=== PATIENT | male | born 1945 | race Caucasian/White ===

== ENCOUNTER 2018-02-01 14:14 | Inpatient (IN) | payer OTHER ==
[~2018-02-01] VITALS: Ht 175.3 cm; Wt 71.0 kg
[2018-02-01 14:51] LABS: BASOPHILS % (AUTO) 0.5 % (0.0-5.0); EOSINOPHILS % (AUTO) 0.1 % (0.0-8.0); HEMATOCRIT 45.5 % (42-54); LYMPHOCYTES % (AUTO) 9.3 % (21.0-51.0); MEAN CORPUSCULAR HEMOGLOBIN 31.3 pg (27.0-33.0); MEAN CORPUSCULAR HGB CONC 34.8 g/dL (32.0-36.0); MONOCYTES % (AUTO) 4.5 % (3.0-13.0); NEUTROPHILS % (AUTO) 85.6 % (40.0-77.0); NUCLEATED RED BLOOD CELLS 0.1 % (0.0-0.19); PLATELET COUNT (AUTO) 232 K/uL (130-400); RED BLOOD CELL COUNT(AUTO) 5.05 MIL/uL (4.50-6.20); RED CELL DISTRIBUTION WIDTH 15.1 % (11.0-15.5); WHITE BLOOD COUNT (AUTO) 9.1 K/uL (4.8-10.8)
[2018-02-01] MEDS ORDERED: CEFTRIAXONE SODIUM 1 GM ONE (14:56)
[2018-02-01] MEDS ORDERED: SODIUM CHLORIDE 0.9% 100 ML IV ONE (14:57)
[2018-02-01 15:03] LABS: CREATININE 1.2 mg/dL (0.5-1.5); INR 1.03 (0.85-1.15); PARTIAL THROMBOPLASTIN TIME 22.7 SEC (26.3-35.5); POTASSIUM 3.8 mmol/L (3.5-5.1); PROTHROMBIN TIME 10.8 SEC (9.6-11.6)
[2018-02-01 15:07] LABS: ALBUMIN 3.1 g/dL (3.5-5.0); BILIRUBIN,TOTAL 1.7 mg/dL (0.2-1.0); TOTAL PROTEIN, SERUM 6.8 g/dL (6.0-8.3)
[2018-02-01 15:24] LABS: ABG BASE EXCESS -3.9 mmol/L (-2.0-3.0); ABG HCO3 18.4 mmol/L (21.0-28.0); ABG OXYGEN SATURATION 99.8 % (95.0-99.0); ABG PCO2 27 mmHg (35-48)
[2018-02-01] MEDS ORDERED: IPRATROPIUM/ALBUTEROL SULFATE 3 ML SOLUTION IH ONE (15:30)
[2018-02-01] MEDS ORDERED: SODIUM CHLORIDE 0.9% 500ML 500 ML IV ONE ×2 (16:00→17:59)
[2018-02-01] MEDS ORDERED: LIDOCAINE HCL 2% VISCOUS 15 ML UDCUP ONE (16:13)
[2018-02-01 16:56] LABS: APPEARANCE,URINE CLOUDY (CLEAR); BILIRUBIN,URINE SMALL (NEGATIVE); COLOR,URINE YELLOW (YELLOW); GLUCOSE, URINE (UA) NEGATIVE (NEGATIVE); KETONES,URINE NEGATIVE (NEGATIVE); LEUKOCYTE ESTERASE ,URINE TRACE (NEGATIVE); NITRATE,URINE NEGATIVE (NEGATIVE); OCCULT BLOOD,URINE LARGE (NEGATIVE); PROTEIN,URINE 30 (NEGATIVE)
[2018-02-01] MEDS ORDERED: AZITHROMYCIN 500MG+NS 250ML 250 ML IV ONE (16:57)
[2018-02-01 17:10] LABS: BACTERIA,URINE Few /HPF (None Seen); SQUAMOUS EPITHELIAL CELL,UR Rare /HPF (0-2)
[2018-02-01 17:11] LABS: MUCUS,URINE Moderate LPF (None Seen); URIC ACID CRYSTALS,URINE Moderate /LPF (None Seen)
[2018-02-01] MEDS ORDERED: SODIUM CHLORIDE 0.9% 1000ML 1,000 ML IV ONE (18:44)
[2018-02-01 19:49] VITALS: BP 99/69
[2018-02-01 20:00] VITALS: BP 100/62
[2018-02-01] MEDS ORDERED: NOREPINEPHRINE 4MG/NS 250ML 250 ML IV PRN (20:45)
[2018-02-01 21:00] VITALS: BP 93/59
[2018-02-01] MEDS: INSULIN HUMULIN R 100 UNIT/ML 3ML SQ SCH (21:00)
[2018-02-01] MEDS ORDERED: SODIUM CHLORIDE 0.9% 1000ML 1,000 ML IV SCH (21:00)
[2018-02-01] MEDS ORDERED: MEROPENEM 1GM IVPB PREMIXED 1 GM IV SCH (21:00)
[2018-02-01 21:02] LABS: ABG BASE EXCESS -7.1 mmol/L (-2.0-3.0); ABG HCO3 14.8 mmol/L (21.0-28.0); ABG OXYGEN SATURATION 98.4 % (95.0-99.0); ABG PCO2 23 mmHg (35-48)
[2018-02-01] MEDS ORDERED: VANCOMYCIN PROTOCOL PER PHARMACY IV SCH (21:30)
[2018-02-01] MEDS: MEROPENEM 1 GM VIAL IVP SCH (21:48)
[2018-02-01] MEDS: METHYLPREDNISOLONE SOD SUCC 125MG/2ML VIAL IVP SCH (21:50)
[2018-02-01] MEDS: SODIUM CHLORIDE 0.9% 1000ML 1,000 ML IV SCH (21:50)
[2018-02-01] MEDS: LEVETIRACETAM 500 MG TABLET PO SCH (21:55)
[2018-02-01 22:00] VITALS: BP 91/60
[2018-02-01] MEDS: VANCOMYCIN 1GM+NS 250ML 250 ML IV SCH (22:01)
[2018-02-01 23:00] VITALS: BP 99/50
[2018-02-01] MEDS: IPRATROPIUM/ALBUTEROL SULFATE 3 ML SOLUTION IH PRN (23:48)
[2018-02-02] VITALS (14 sets, daily range): BP systolic 86–126; BP diastolic 39–76
[2018-02-02] MEDS: METHYLPREDNISOLONE SOD SUCC 125MG/2ML VIAL IVP SCH ×4 (03:10→20:56)
[2018-02-02 03:52] LABS: BASOPHILS % (AUTO) 0.2 % (0.0-5.0); EOSINOPHILS % (AUTO) 0.1 % (0.0-8.0); HEMATOCRIT 39.9 % (42-54); LYMPHOCYTES % (AUTO) 5.2 % (21.0-51.0); MEAN CORPUSCULAR HEMOGLOBIN 31.6 pg (27.0-33.0); MEAN CORPUSCULAR HGB CONC 34.9 g/dL (32.0-36.0); MEAN CORPUSCULAR VOLUME 90.5 fL (79-99); MONOCYTES % (AUTO) 3.5 % (3.0-13.0); NUCLEATED RED BLOOD CELLS 0.1 % (0.0-0.19); PLATELET COUNT (AUTO) 175 K/uL (130-400); RED CELL DISTRIBUTION WIDTH 14.7 % (11.0-15.5); WHITE BLOOD COUNT (AUTO) 5.9 K/uL (4.8-10.8)
[2018-02-02 04:06] LABS: ALBUMIN 2.4 g/dL (3.5-5.0); BILIRUBIN,TOTAL 1.6 mg/dL (0.2-1.0); MAGNESIUM 1.7 mg/dL (1.80-2.40); PHOSPHORUS 3.7 mg/dL (2.5-4.9); POTASSIUM 4.1 mmol/L (3.5-5.1); TOTAL PROTEIN, SERUM 5.9 g/dL (6.0-8.3)
[2018-02-02] MEDS ORDERED: TIOT18CA3 IH (05:17)
[2018-02-02] MEDS ORDERED: FISH1CAP63 PO (05:17)
[2018-02-02] MEDS ORDERED: TAMS0.4C32 PO (05:17)
[2018-02-02] MEDS ORDERED: PANT40TA25 PO (05:17)
[2018-02-02] MEDS ORDERED: CALC-451 PO (05:17)
[2018-02-02] MEDS ORDERED: AZAT50TA PO (05:17)
[2018-02-02] MEDS ORDERED: CHOL200013 PO (05:17)
[2018-02-02] MEDS ORDERED: VITA1CAP85 PO (05:17)
[2018-02-02] MEDS ORDERED: ASPI-555 PO (05:17)
[2018-02-02] MEDS: MEROPENEM 1 GM VIAL IVP SCH ×3 (05:19→20:54)
[2018-02-02 05:39] LABS: ABG BASE EXCESS -1.9 mmol/L (-2.0-3.0); ABG PCO2 27 mmHg (35-48)
[2018-02-02] MEDS: INSULIN HUMULIN R 100 UNIT/ML 3ML SQ SCH ×4 (06:14→20:46)
[2018-02-02] MEDS: SODIUM CHLORIDE 0.9% 1000ML 1,000 ML IV SCH ×2 (06:15→17:07)
[2018-02-02] MEDS: IPRATROPIUM/ALBUTEROL SULFATE 3 ML SOLUTION IH PRN (06:16)
[2018-02-02] MEDS: LEVETIRACETAM 500 MG TABLET PO SCH ×2 (08:18→20:56)
[2018-02-02] MEDS: LEVOFLOXACIN 750 MG/D5W 150 ML 150 ML IV SCH (08:18)
[2018-02-02] MEDS: PANTOPRAZOLE SODIUM 40 MG TABLET.DR PO SCH (08:18)
[2018-02-02] MEDS: VANCOMYCIN 1GM+NS 250ML 250 ML IV SCH ×2 (08:18→20:50)
[2018-02-02] MEDS: ENOXAPARIN SODIUM 40 MG/0.4 ML SYRINGE SQ SCH (08:35)
[2018-02-02] MEDS: IPRATROPIUM/ALBUTEROL SULFATE 3 ML SOLUTION IH SCH ×2 (11:37→19:19)
[2018-02-02] MEDS: ACETAMINOPHEN 325 MG TAB PO PRN (18:34)
[2018-02-03] VITALS (7 sets, daily range): BP systolic 103–133; BP diastolic 50–69
[2018-02-03] MEDS: IPRATROPIUM/ALBUTEROL SULFATE 3 ML SOLUTION IH SCH ×5 (00:40→23:28)
[2018-02-03] MEDS: METHYLPREDNISOLONE SOD SUCC 125MG/2ML VIAL IVP SCH ×2 (03:24→08:54)
[2018-02-03] MEDS: SODIUM CHLORIDE 0.9% 1000ML 1,000 ML IV SCH ×2 (05:32→12:16)
[2018-02-03] MEDS: MEROPENEM 1 GM VIAL IVP SCH ×3 (05:46→20:50)
[2018-02-03] MEDS: INSULIN HUMULIN R 100 UNIT/ML 3ML SQ SCH ×4 (07:30→21:00)
[2018-02-03] MEDS: VANCOMYCIN 1GM+NS 250ML 250 ML IV SCH (09:10)
[2018-02-03] MEDS: LEVOFLOXACIN 750 MG/D5W 150 ML 150 ML IV SCH (10:35)
[2018-02-03] MEDS: LEVETIRACETAM 500 MG TABLET PO SCH ×2 (10:35→20:50)
[2018-02-03] MEDS: ASPIRIN 325 MG TABLET PO SCH (10:35)
[2018-02-03] MEDS: PANTOPRAZOLE SODIUM 40 MG TABLET.DR PO SCH (10:35)
[2018-02-03] MEDS: DEXAMETHASONE SOD PHOSPHATE 4 MG/ML 1ML VIAL IVP SCH ×3 (10:35→22:20)
[2018-02-03] MEDS: ENOXAPARIN SODIUM 40 MG/0.4 ML SYRINGE SQ SCH (10:36)
[2018-02-03] MEDS ORDERED: COMPOUND IV REFRIGERATED 1 EACH IVSOLN MISC PRN (13:45)
[2018-02-03] MEDS: VANCOMYCIN 1.25 GM in SODIUM CHLORIDE 0.9% 250 ML IV SCH (17:20)
[2018-02-03] MEDS ORDERED: MANNITOL 20% IV ONE ×2 (19:30→20:30)
[2018-02-03] MEDS: ACETAMINOPHEN 325 MG TAB PO PRN (20:04)
[2018-02-04 03:28] VITALS: BP 134/71
[2018-02-04] MEDS: DEXAMETHASONE SOD PHOSPHATE 4 MG/ML 1ML VIAL IVP SCH ×4 (03:39→21:21)
[2018-02-04] MEDS: SODIUM CHLORIDE 0.9% 1000ML 1,000 ML IV SCH ×2 (03:39→16:34)
[2018-02-04 03:56] LABS: HEMATOCRIT 31.3 % (42-54); MEAN CORPUSCULAR HEMOGLOBIN 31.3 pg (27.0-33.0); MEAN CORPUSCULAR VOLUME 89.5 fL (79-99); NUCLEATED RED BLOOD CELLS 0.2 % (0.0-0.19); PLATELET COUNT (AUTO) 164 K/uL (130-400); WHITE BLOOD COUNT (AUTO) 6.8 K/uL (4.8-10.8)
[2018-02-04 04:08] LABS: ALBUMIN 1.8 g/dL (3.5-5.0); BILIRUBIN,TOTAL 0.5 mg/dL (0.2-1.0); CREATININE 0.8 mg/dL (0.5-1.5); POTASSIUM 3.1 mmol/L (3.5-5.1); TOTAL PROTEIN, SERUM 5.4 g/dL (6.0-8.3)
[2018-02-04] MEDS: VANCOMYCIN 1.25 GM in SODIUM CHLORIDE 0.9% 250 ML IV SCH ×2 (05:27→18:12)
[2018-02-04] MEDS: MEROPENEM 1 GM VIAL IVP SCH ×3 (05:27→21:20)
[2018-02-04] MEDS: IPRATROPIUM/ALBUTEROL SULFATE 3 ML SOLUTION IH SCH ×4 (06:54→23:21)
[2018-02-04] MEDS: INSULIN HUMULIN R 100 UNIT/ML 3ML SQ SCH ×4 (06:59→20:58)
[2018-02-04 07:48] VITALS: BP 115/61
[2018-02-04 08:00] VITALS: BP 116/52
[2018-02-04] MEDS: LEVETIRACETAM 500 MG TABLET PO SCH ×2 (08:26→21:20)
[2018-02-04] MEDS: PANTOPRAZOLE SODIUM 40 MG TABLET.DR PO SCH (08:26)
[2018-02-04] MEDS: ENOXAPARIN SODIUM 40 MG/0.4 ML SYRINGE SQ SCH (08:26)
[2018-02-04] MEDS: ASPIRIN 325 MG TABLET PO SCH (08:26)
[2018-02-04] MEDS: LEVOFLOXACIN 750 MG/D5W 150 ML 150 ML IV SCH (09:53)
[2018-02-04] MEDS ORDERED: GADOBENATE DIMEGLUMINE 10 ML IV ONE (10:19)
[2018-02-04 11:26] VITALS: BP 109/89
[2018-02-04] MEDS ORDERED: POTASSIUM CHLORIDE 10 MEQ in SODIUM CHLORIDE 0.9% 50 ML IV SCH (12:45)
[2018-02-04] MEDS: ACETAMINOPHEN 325 MG TAB PO PRN (14:44)
[2018-02-04 16:00] VITALS: BP 118/66
[2018-02-04] MEDS: MANNITOL 25% 50ML VIAL IV SCH (18:17)
[2018-02-04 20:00] VITALS: BP 97/50
[2018-02-04] MEDS: ATORVASTATIN CALCIUM 40 MG TABLET PO SCH (21:21)
[2018-02-05] VITALS (19 sets, daily range): BP systolic 98–132; BP diastolic 42–71
[2018-02-05] MEDS: MANNITOL 25% 50ML VIAL IV SCH ×4 (01:05→23:58)
[2018-02-05 03:34] LABS: HEMATOCRIT 30.6 % (42-54); MEAN CORPUSCULAR HEMOGLOBIN 32.6 pg (27.0-33.0); MEAN CORPUSCULAR HGB CONC 36.5 g/dL (32.0-36.0); MEAN CORPUSCULAR VOLUME 89.2 fL (79-99); NUCLEATED RED BLOOD CELLS 0.3 % (0.0-0.19); PLATELET COUNT (AUTO) 159 K/uL (130-400); RED BLOOD CELL COUNT(AUTO) 3.43 MIL/uL (4.50-6.20); RED CELL DISTRIBUTION WIDTH 14.7 % (11.0-15.5); WHITE BLOOD COUNT (AUTO) 5.9 K/uL (4.8-10.8)
[2018-02-05] MEDS: DEXAMETHASONE SOD PHOSPHATE 4 MG/ML 1ML VIAL IVP SCH ×4 (03:42→21:41)
[2018-02-05 03:44] LABS: INR 1.02 (0.85-1.15); PARTIAL THROMBOPLASTIN TIME 24.4 SEC (26.3-35.5); PROTHROMBIN TIME 10.7 SEC (9.6-11.6)
[2018-02-05] MEDS: SODIUM CHLORIDE 0.9% 1000ML 1,000 ML IV SCH ×2 (03:46→21:39)
[2018-02-05 03:52] LABS: ALBUMIN 1.8 g/dL (3.5-5.0); BILIRUBIN,TOTAL 0.4 mg/dL (0.2-1.0); CREATININE 0.8 mg/dL (0.5-1.5); MAGNESIUM 1.9 mg/dL (1.80-2.40); PHOSPHORUS 2.4 mg/dL (2.5-4.9); POTASSIUM 3.5 mmol/L (3.5-5.1); TOTAL PROTEIN, SERUM 5.2 g/dL (6.0-8.3)
[2018-02-05] MEDS: MEROPENEM 1 GM VIAL IVP SCH ×3 (04:00→21:40)
[2018-02-05] MEDS: VANCOMYCIN 1.25 GM in SODIUM CHLORIDE 0.9% 250 ML IV SCH ×2 (04:45→18:23)
[2018-02-05] MEDS: INSULIN HUMULIN R 100 UNIT/ML 3ML SQ SCH ×4 (06:23→21:00)
[2018-02-05] MEDS: IPRATROPIUM/ALBUTEROL SULFATE 3 ML SOLUTION IH SCH ×4 (07:02→23:11)
[2018-02-05] MEDS: LEVOFLOXACIN 750 MG/D5W 150 ML 150 ML IV SCH (09:58)
[2018-02-05] MEDS: ENOXAPARIN SODIUM 40 MG/0.4 ML SYRINGE SQ SCH (10:00)
[2018-02-05] MEDS: ACETAMINOPHEN 325 MG TAB PO PRN ×2 (10:00→22:03)
[2018-02-05] MEDS: ASPIRIN 325 MG TABLET PO SCH (10:01)
[2018-02-05] MEDS: PANTOPRAZOLE SODIUM 40 MG TABLET.DR PO SCH (10:01)
[2018-02-05] MEDS: LEVETIRACETAM 500 MG TABLET PO SCH ×2 (10:02→21:40)
[2018-02-05] MEDS ORDERED: DEXAMETHASONE SOD PHOSPHATE 4 MG/ML 1ML VIAL IVP ONE (20:42)
[2018-02-05] MEDS: ATORVASTATIN CALCIUM 40 MG TABLET PO SCH (21:40)
[2018-02-06] VITALS (7 sets, daily range): BP systolic 106–141; BP diastolic 63–69
[2018-02-06] MEDS: DEXAMETHASONE SOD PHOSPHATE 4 MG/ML 1ML VIAL IVP SCH ×4 (03:30→20:07)
[2018-02-06] MEDS: MEROPENEM 1 GM VIAL IVP SCH ×3 (04:57→20:07)
[2018-02-06] MEDS: VANCOMYCIN 1.25 GM in SODIUM CHLORIDE 0.9% 250 ML IV SCH ×2 (06:00→22:16)
[2018-02-06] MEDS: IPRATROPIUM/ALBUTEROL SULFATE 3 ML SOLUTION IH SCH ×4 (06:14→23:50)
[2018-02-06] MEDS: INSULIN HUMULIN R 100 UNIT/ML 3ML SQ SCH ×4 (06:23→20:18)
[2018-02-06] MEDS: LEVETIRACETAM 500 MG TABLET PO SCH ×2 (08:12→20:07)
[2018-02-06] MEDS: ASPIRIN 325 MG TABLET PO SCH (08:13)
[2018-02-06] MEDS: ACETAMINOPHEN 325 MG TAB PO PRN (08:14)
[2018-02-06] MEDS: PANTOPRAZOLE SODIUM 40 MG TABLET.DR PO SCH (08:14)
[2018-02-06] MEDS: ENOXAPARIN SODIUM 40 MG/0.4 ML SYRINGE SQ SCH (08:16)
[2018-02-06] MEDS: SODIUM CHLORIDE 0.9% 1000ML 1,000 ML IV SCH (08:16)
[2018-02-06] MEDS: LEVOFLOXACIN 750 MG/D5W 150 ML 150 ML IV SCH (08:17)
[2018-02-06] MEDS: MANNITOL 25% 50ML VIAL IV SCH (08:17)
[2018-02-06 11:11] LABS: BASOPHILS % (AUTO) 0.1 % (0.0-5.0); HEMATOCRIT 34.2 % (42-54); LYMPHOCYTES % (AUTO) 5.6 % (21.0-51.0); MEAN CORPUSCULAR HEMOGLOBIN 31.4 pg (27.0-33.0); MEAN CORPUSCULAR HGB CONC 35.2 g/dL (32.0-36.0); MEAN CORPUSCULAR VOLUME 89.1 fL (79-99); MONOCYTES % (AUTO) 5.4 % (3.0-13.0); NEUTROPHILS % (AUTO) 88.9 % (40.0-77.0); NUCLEATED RED BLOOD CELLS 0.2 % (0.0-0.19); PLATELET COUNT (AUTO) 167 K/uL (130-400); RED BLOOD CELL COUNT(AUTO) 3.84 MIL/uL (4.50-6.20); RED CELL DISTRIBUTION WIDTH 14.8 % (11.0-15.5); WHITE BLOOD COUNT (AUTO) 6.8 K/uL (4.8-10.8)
[2018-02-06 11:27] LABS: CREATININE 0.8 mg/dL (0.5-1.5); PHOSPHORUS 2.1 mg/dL (2.5-4.9); POTASSIUM 3.5 mmol/L (3.5-5.1)
[2018-02-06] MEDS: MORPHINE SULFATE 2 MG/ML 1ML SYG IVP PRN ×2 (12:36→20:35)
[2018-02-06] MEDS: BENZONATATE 100 MG CAPSULE PO PRN (12:36)
[2018-02-06] MEDS: MORPHINE SULFATE 4 MG/1ML SYG ONE ×2 (16:36→16:55)
[2018-02-06] MEDS: ATORVASTATIN CALCIUM 40 MG TABLET PO SCH (20:07)
[2018-02-07] VITALS: BP 114/60
[2018-02-07 04:00] VITALS: BP 126/66
[2018-02-07] MEDS: MORPHINE SULFATE 2 MG/ML 1ML SYG IVP PRN ×4 (04:10→21:19)
[2018-02-07] MEDS: SODIUM CHLORIDE 0.9% 1000ML 1,000 ML IV SCH ×2 (04:12→11:51)
[2018-02-07] MEDS: MEROPENEM 1 GM VIAL IVP SCH ×3 (04:17→21:05)
[2018-02-07] MEDS: DEXAMETHASONE SOD PHOSPHATE 4 MG/ML 1ML VIAL IVP SCH ×4 (04:17→21:39)
[2018-02-07] MEDS: INSULIN HUMULIN R 100 UNIT/ML 3ML SQ SCH ×4 (06:01→21:00)
[2018-02-07] MEDS: VANCOMYCIN 1.25 GM in SODIUM CHLORIDE 0.9% 250 ML IV SCH ×2 (06:02→18:07)
[2018-02-07] MEDS: IPRATROPIUM/ALBUTEROL SULFATE 3 ML SOLUTION IH SCH ×4 (06:43→23:37)
[2018-02-07 07:00] VITALS: BP 108/71
[2018-02-07] MEDS: ASPIRIN 325 MG TABLET PO SCH (08:13)
[2018-02-07] MEDS: PANTOPRAZOLE SODIUM 40 MG TABLET.DR PO SCH (08:13)
[2018-02-07] MEDS: LEVETIRACETAM 500 MG TABLET PO SCH ×2 (08:13→21:06)
[2018-02-07] MEDS: ENOXAPARIN SODIUM 40 MG/0.4 ML SYRINGE SQ SCH (08:14)
[2018-02-07] MEDS: LEVOFLOXACIN 750 MG/D5W 150 ML 150 ML IV SCH (08:32)
[2018-02-07] MEDS: BENZONATATE 100 MG CAPSULE PO PRN (10:32)
[2018-02-07 12:00] VITALS: BP 120/67
[2018-02-07 16:00] VITALS: BP 117/67
[2018-02-07 20:00] VITALS: BP 116/68
[2018-02-07] MEDS: ATORVASTATIN CALCIUM 40 MG TABLET PO SCH (21:06)
[2018-02-07] MEDS: POLYETHYLENE GLYCOL 3350 17 GM POWD.PACK PO PRN (23:36)
[2018-02-08] VITALS (7 sets, daily range): BP systolic 108–134; BP diastolic 57–73
[2018-02-08] MEDS: SODIUM CHLORIDE 0.9% 1000ML 1,000 ML IV SCH (01:02)
[2018-02-08] MEDS: MORPHINE SULFATE 2 MG/ML 1ML SYG IVP PRN ×2 (01:19→14:42)
[2018-02-08] MEDS: DEXAMETHASONE SOD PHOSPHATE 4 MG/ML 1ML VIAL IVP SCH ×3 (03:53→21:11)
[2018-02-08] MEDS: MEROPENEM 1 GM VIAL IVP SCH (04:31)
[2018-02-08] MEDS: VANCOMYCIN 1.25 GM in SODIUM CHLORIDE 0.9% 250 ML IV SCH (05:29)
[2018-02-08] MEDS: INSULIN HUMULIN R 100 UNIT/ML 3ML SQ SCH ×4 (06:10→20:16)
[2018-02-08] MEDS: IPRATROPIUM/ALBUTEROL SULFATE 3 ML SOLUTION IH SCH ×4 (06:35→23:25)
[2018-02-08] MEDS: LEVETIRACETAM 500 MG TABLET PO SCH ×2 (09:22→21:13)
[2018-02-08] MEDS: LEVOFLOXACIN 750 MG/D5W 150 ML 150 ML IV SCH (09:22)
[2018-02-08] MEDS: ASPIRIN 325 MG TABLET PO SCH (09:23)
[2018-02-08] MEDS: PANTOPRAZOLE SODIUM 40 MG TABLET.DR PO SCH (09:23)
[2018-02-08] MEDS: ENOXAPARIN SODIUM 40 MG/0.4 ML SYRINGE SQ SCH (09:23)
[2018-02-08] MEDS ORDERED: MORPHINE SULFATE 4 MG/1ML SYG ONE (21:10)
[2018-02-08] MEDS: ATORVASTATIN CALCIUM 40 MG TABLET PO SCH (21:13)
[2018-02-09 04:00] VITALS: BP 114/59
[2018-02-09] MEDS: IPRATROPIUM/ALBUTEROL SULFATE 3 ML SOLUTION IH SCH ×3 (06:29→11:05)
[2018-02-09] MEDS: INSULIN HUMULIN R 100 UNIT/ML 3ML SQ SCH ×2 (06:35→11:30)
[2018-02-09 08:00] VITALS: BP 109/57
[2018-02-09] MEDS ORDERED: MORPHINE SULFATE 4 MG/1ML SYG ONE (09:14)
[2018-02-09] MEDS: LEVOFLOXACIN 750 MG/D5W 150 ML 150 ML IV SCH (09:40)
[2018-02-09] MEDS: DEXAMETHASONE SOD PHOSPHATE 4 MG/ML 1ML VIAL IVP SCH (09:41)
[2018-02-09] MEDS: ASPIRIN 325 MG TABLET PO SCH (09:41)
[2018-02-09] MEDS: PANTOPRAZOLE SODIUM 40 MG TABLET.DR PO SCH (09:41)
[2018-02-09] MEDS: ENOXAPARIN SODIUM 40 MG/0.4 ML SYRINGE SQ SCH (09:41)
[2018-02-09] MEDS: LEVETIRACETAM 500 MG TABLET PO SCH (09:42)
[2018-02-09] MEDS: MORPHINE SULFATE 2 MG/ML 1ML SYG IVP PRN (09:43)
[2018-02-09 11:38] VITALS: BP 90/55
[2018-02-09] MEDS: POLYETHYLENE GLYCOL 3350 17 GM POWD.PACK PO PRN (12:15)
[2018-02-19] MEDS ORDERED: TRAZ-144 PO (09:05)
== END 2018-02-09 16:00 | DRG 871 ==
LOC: EDH 14:14 → EDHIP 18:35 → 2BH 19:47 → 3BH 02-06 12:27
PROVIDERS: ADMIT Internal Medicine Medical Oncology; ATTEND Internal Medicine Medical Oncology
PROC: 5A09357 Assistance with Respiratory Ventilation, Less than 24 Consecutive Hours, Continuous Positive Airway Pressure (ICD-10-PCS; principal; 2018-02-01)
PROC: 5A09357 Assistance with Respiratory Ventilation, Less than 24 Consecutive Hours, Continuous Positive Airway Pressure (ICD-10-PCS; 2018-02-02)
DX: A41.9 Sepsis, unspecified organism (principal); J18.9 Pneumonia, unspecified organism; G93.6 Cerebral edema; I63.521 Cerebral infarction due to unspecified occlusion or stenosis of right anterior cerebral artery; J96.01 Acute respiratory failure with hypoxia; G93.40 Encephalopathy, unspecified; E46 Unspecified protein-calorie malnutrition; C71.9 Malignant neoplasm of brain, unspecified; R13.10 Dysphagia, unspecified; G81.94 Hemiplegia, unspecified affecting left nondominant side; J44.0 Chronic obstructive pulmonary disease with (acute) lower respiratory infection; J44.1 Chronic obstructive pulmonary disease with (acute) exacerbation; Z66 Do not resuscitate; E83.39 Other disorders of phosphorus metabolism; E87.6 Hypokalemia; K74.60 Unspecified cirrhosis of liver; M19.90 Unspecified osteoarthritis, unspecified site; R56.9 Unspecified convulsions; Z28.21 Immunization not carried out because of patient refusal; Z68.23 Body mass index [BMI] 23.0-23.9, adult; Z79.52 Long term (current) use of systemic steroids; Z80.9 Family history of malignant neoplasm, unspecified; Z82.49 Family history of ischemic heart disease and other diseases of the circulatory system; Z83.3 Family history of diabetes mellitus; Z87.891 Personal history of nicotine dependence; Z90.49 Acquired absence of other specified parts of digestive tract; Z92.21 Personal history of antineoplastic chemotherapy
CPT/HCPCS: 36415; 36600; 70450; 70553; 71045; 80048; 80053; 80202; 81001; 82803; 82948; 83605; 83735; 83880; 83930; 84100; 84484; 85025; 85027; 85610; 85730; 87040; 87088; 87186; 87804; 92610; 93005; 93306; 94640; 94660; 94664; 97039; 99291; A4218; A9577; J0456; J0696; J1100; J1650; J1815; J1956; J2150; J2185; J2270; J2930; J3370; J3490; J7030; J7040

== ENCOUNTER 2018-02-18 20:18 | Inpatient (IN) | payer OTHER ==
[~2018-02-18] VITALS: Ht 175.3 cm; Wt 61.6 kg
[~2018-02-18 20:18] MED LIST: ASPI-555 PO; AZAT50TA PO; CALC-451 PO; CHOL200013 PO; FISH1CAP63 PO; PANT40TA25 PO; TAMS0.4C32 PO; TIOT18CA3 IH; VITA1CAP85 PO
[2018-02-18] MEDS ORDERED: BENZONATATE 100 MG CAPSULE PO ONE (20:49)
[2018-02-18 20:57] LABS: BASOPHILS % (AUTO) 0.9 % (0.0-5.0); EOSINOPHILS % (AUTO) 0.7 % (0.0-8.0); HEMATOCRIT 33.5 % (42-54); LYMPHOCYTES % (AUTO) 13.3 % (21.0-51.0); MEAN CORPUSCULAR HEMOGLOBIN 31.6 pg (27.0-33.0); MEAN CORPUSCULAR HGB CONC 35.6 g/dL (32.0-36.0); MEAN CORPUSCULAR VOLUME 88.7 fL (79-99); MONOCYTES % (AUTO) 3.4 % (3.0-13.0); NEUTROPHILS % (AUTO) 81.7 % (40.0-77.0); NUCLEATED RED BLOOD CELLS 0.8 % (0.0-0.19); PLATELET COUNT (AUTO) 270 K/uL (130-400); RED BLOOD CELL COUNT(AUTO) 3.78 MIL/uL (4.50-6.20); RED CELL DISTRIBUTION WIDTH 15.5 % (11.0-15.5); WHITE BLOOD COUNT (AUTO) 12.4 K/uL (4.8-10.8)
[2018-02-18 21:06] LABS: INR 1.09 (0.85-1.15); PARTIAL THROMBOPLASTIN TIME 21.7 SEC (26.3-35.5); PROTHROMBIN TIME 11.4 SEC (9.6-11.6)
[2018-02-18 21:07] LABS: CREATININE 0.7 mg/dL (0.5-1.5); POTASSIUM 3.5 mmol/L (3.5-5.1)
[2018-02-18 21:21] LABS: ALBUMIN 2.3 g/dL (3.5-5.0); BILIRUBIN,TOTAL 0.7 mg/dL (0.2-1.0); CREATINE KINASE MB 1.4 ng/mL (0.5-3.6); TOTAL PROTEIN, SERUM 6.7 g/dL (6.0-8.3)
[2018-02-18] MEDS ORDERED: SODIUM CHLORIDE 0.9% 500ML 500 ML IV ONE (23:00)
[2018-02-18] MEDS ORDERED: LEVOFLOXACIN 500 MG/D5W 100 ML 100 ML ONE (23:00)
[2018-02-18] MEDS ORDERED: ASPIRIN 325 MG TABLET ONE (23:00)
[2018-02-18] MEDS ORDERED: IPRATROPIUM/ALBUTEROL SULFATE 3 ML SOLUTION IH ONE (23:02)
[2018-02-19] VITALS (21 sets, daily range): BP systolic 82–166; BP diastolic 45–66
[2018-02-19] MEDS ORDERED: POTASSIUM CHLORIDE 20MEQ/100ML 100 ML IV PRN (01:30)
[2018-02-19] MEDS ORDERED: HYDRALAZINE HCL 20 MG/ML VIAL IV PRN (01:30)
[2018-02-19] MEDS ORDERED: POTASSIUM CHLORIDE 20 MEQ ERTAB PO PRN (01:30)
[2018-02-19] MEDS: LEVOFLOXACIN 500 MG/D5W 100 ML 100 ML IV SCH (01:30)
[2018-02-19] MEDS ORDERED: LIDOCAINE HCL-MPF 1% 2ML VIAL IVP PRN (01:30)
[2018-02-19] MEDS ORDERED: POTASSIUM CHLORIDE 10% ELIXIR 20 MEQ/15 ML UDCUP PO PRN (01:30)
[2018-02-19] MEDS: IPRATROPIUM/ALBUTEROL SULFATE 3 ML SOLUTION IH SCH ×6 (03:11→22:07)
[2018-02-19] MEDS ORDERED: CLONIDINE HCL 0.1 MG TABLET PO PRN (05:30)
[2018-02-19] MEDS ORDERED: ZOLPIDEM TARTRATE 5 MG TAB PO PRN (05:30)
[2018-02-19] MEDS ORDERED: DEXTROSE 50%-WATER 50 ML DISP.SYRIN IV PRN (05:30)
[2018-02-19] MEDS ORDERED: MAG HYDROX/AL HYDROX/SIMETH ES 30 ML SUSP UDCUP PO PRN (05:30)
[2018-02-19] MEDS ORDERED: SODIUM CHLORIDE 0.9% 1000ML 1,000 ML IV SCH (05:30)
[2018-02-19] MEDS ORDERED: NITROGLYCERIN 0.4 MG SL TAB SL PRN (05:30)
[2018-02-19] MEDS ORDERED: LACTULOSE 20 GM/30 ML UDCUP PO PRN (05:30)
[2018-02-19] MEDS ORDERED: GUAIFENESIN-DM 200/20 MG 10 ML PO PRN (05:30)
[2018-02-19] MEDS ORDERED: GLUCAGON 1MG KIT 1 MG ML IM PRN (05:30)
[2018-02-19] MEDS ORDERED: ACETAMINOPHEN 325 MG TAB PO PRN ×2 (05:30)
[2018-02-19] MEDS ORDERED: ONDANSETRON HCL 4 MG/2 ML VIAL IVP PRN (05:30)
[2018-02-19] MEDS ORDERED: ONDANSETRON HCL MDV 20ML 2 MG/ML VIAL IVP PRN (05:45)
[2018-02-19 06:00] LABS: BASOPHILS % (AUTO) 0.6 % (0.0-5.0); EOSINOPHILS % (AUTO) 0.8 % (0.0-8.0); HEMATOCRIT 29.5 % (42-54); LYMPHOCYTES % (AUTO) 14.7 % (21.0-51.0); MEAN CORPUSCULAR HEMOGLOBIN 30.9 pg (27.0-33.0); MEAN CORPUSCULAR VOLUME 88.3 fL (79-99); MONOCYTES % (AUTO) 2.3 % (3.0-13.0); NEUTROPHILS % (AUTO) 81.6 % (40.0-77.0); NUCLEATED RED BLOOD CELLS 0.3 % (0.0-0.19); PLATELET COUNT (AUTO) 205 K/uL (130-400); RED BLOOD CELL COUNT(AUTO) 3.34 MIL/uL (4.50-6.20); RED CELL DISTRIBUTION WIDTH 15.5 % (11.0-15.5); WHITE BLOOD COUNT (AUTO) 7.3 K/uL (4.8-10.8)
[2018-02-19] MEDS ORDERED: MEPERIDINE-PF 50 MG/ML SYG IVP PRN (06:00)
[2018-02-19 06:16] LABS: CREATININE 0.6 mg/dL (0.5-1.5); POTASSIUM 3.3 mmol/L (3.5-5.1)
[2018-02-19] MEDS: INSULIN R PO SS1 SQ SCH ×3 (06:35→23:30)
[2018-02-19] MEDS ORDERED: PANTOPRAZOLE 40 MG/VIAL IVP SCH (09:00)
[2018-02-19] MEDS ORDERED: ASCO500T9 PO (09:05)
[2018-02-19] MEDS ORDERED: ZINC220T PO (09:05)
[2018-02-19] MEDS ORDERED: LACHLOT TP (09:05)
[2018-02-19] MEDS ORDERED: TAMS-1 PO (09:05)
[2018-02-19] MEDS ORDERED: POLY17PO4 PO (09:05)
[2018-02-19] MEDS ORDERED: DEXA2 PO (09:05)
[2018-02-19] MEDS ORDERED: MEGACE PO (09:05)
[2018-02-19] MEDS ORDERED: TRAZ-185 PO (09:05)
[2018-02-19] MEDS ORDERED: ATOR40TA69 PO (09:05)
[2018-02-19] MEDS ORDERED: PANT40TA25 PO (09:05)
[2018-02-19] MEDS ORDERED: MOM30 PO (09:05)
[2018-02-19] MEDS ORDERED: LEVE500T8 PO (09:05)
[2018-02-19] MEDS ORDERED: TIOT18CA3 IH (09:05)
[2018-02-19] MEDS ORDERED: LIDOP TD (09:05)
[2018-02-19] MEDS ORDERED: BENZ-39 PO (09:05)
[2018-02-19] MEDS ORDERED: CLOT15C TP (09:05)
[2018-02-19] MEDS: METHYLPREDNISOLONE SOD SUCC 40MG/ML 1ML IVP SCH ×2 (10:13→22:55)
[2018-02-19] MEDS: FAMOTIDINE/PF 20 MG/2 ML VIAL IV SCH ×2 (10:13→22:55)
[2018-02-19] MEDS ORDERED: MAGNESIUM HYDROXIDE 30 ML/UDCUP PO SCH (10:15)
[2018-02-19] MEDS ORDERED: BENZONATATE 100 MG CAPSULE PO PRN (10:15)
[2018-02-19] MEDS ORDERED: POLYETHYLENE GLYCOL 3350 17 GM POWD.PACK PO PRN (10:15)
[2018-02-19] MEDS: ZINC SULFATE 220 CAPSULE PO SCH (10:25)
[2018-02-19] MEDS ORDERED: CEFAZOLIN SODIUM 1 GM VIAL ONE (12:41)
[2018-02-19] MEDS: LEVETIRACETAM 500 MG TABLET PO SCH (22:55)
[2018-02-19] MEDS: ASCORBIC ACID 500 MG TAB PO SCH (22:55)
[2018-02-19] MEDS: DEXAMETHASONE 4 MG TAB PO SCH (22:55)
[2018-02-19] MEDS: ATORVASTATIN CALCIUM 40 MG TABLET PO SCH (22:55)
[2018-02-19] MEDS: TRAZODONE HCL 50 MG TAB PO SCH (22:55)
[2018-02-20] VITALS: BP 137/69
[2018-02-20] MEDS: LEVOFLOXACIN 500 MG/D5W 100 ML 100 ML IV SCH (00:59)
[2018-02-20] MEDS: IPRATROPIUM/ALBUTEROL SULFATE 3 ML SOLUTION IH SCH ×6 (02:19→22:25)
[2018-02-20 04:00] VITALS: BP 125/66
[2018-02-20 06:04] LABS: BASOPHILS % (AUTO) 0.1 % (0.0-5.0); LYMPHOCYTES % (AUTO) 7.1 % (21.0-51.0); MEAN CORPUSCULAR HEMOGLOBIN 32.4 pg (27.0-33.0); MEAN CORPUSCULAR HGB CONC 36.7 g/dL (32.0-36.0); MEAN CORPUSCULAR VOLUME 88.4 fL (79-99); MONOCYTES % (AUTO) 2.5 % (3.0-13.0); NEUTROPHILS % (AUTO) 90.3 % (40.0-77.0); NUCLEATED RED BLOOD CELLS 0.1 % (0.0-0.19); PLATELET COUNT (AUTO) 215 K/uL (130-400); RED CELL DISTRIBUTION WIDTH 15.2 % (11.0-15.5); WHITE BLOOD COUNT (AUTO) 8.6 K/uL (4.8-10.8)
[2018-02-20 06:13] LABS: CREATININE 0.5 mg/dL (0.5-1.5)
[2018-02-20] MEDS: INSULIN R PO SS1 SQ SCH ×2 (06:19→21:00)
[2018-02-20 08:00] VITALS: BP 119/70
[2018-02-20] MEDS: AMMONIUM LACTATE TP SCH (09:00)
[2018-02-20] MEDS ORDERED: SUB TO IPRATROPIUM 0.5MG/2.5ML PER P&T IH SCH (09:00)
[2018-02-20] MEDS: APPL TP SCH (09:00)
[2018-02-20] MEDS: LEVETIRACETAM 500 MG TABLET PO SCH ×2 (10:27→21:54)
[2018-02-20] MEDS: FAMOTIDINE/PF 20 MG/2 ML VIAL IV SCH ×2 (10:27→21:53)
[2018-02-20] MEDS: MEGESTROL 400 MG/10 ML UDCUP PO SCH (10:27)
[2018-02-20] MEDS: ASCORBIC ACID 500 MG TAB PO SCH ×2 (10:27→21:54)
[2018-02-20] MEDS: TAMSULOSIN HCL 0.4 MG CAP.ER.24H PO SCH (10:27)
[2018-02-20] MEDS: ZINC SULFATE 220 CAPSULE PO SCH (10:42)
[2018-02-20] MEDS: DEXAMETHASONE 4 MG TAB PO SCH ×2 (10:43→23:18)
[2018-02-20] MEDS: METHYLPREDNISOLONE SOD SUCC 40MG/ML 1ML IVP SCH ×2 (10:44→21:53)
[2018-02-20] MEDS: ACETAMINOPHEN 325 MG TAB PO PRN ×2 (10:53→21:55)
[2018-02-20 11:55] VITALS: BP 126/71
[2018-02-20] MEDS: IPRATROPIUM 0.5 MG/2.5 ML INH IH SCH ×2 (12:00→18:00)
[2018-02-20 16:00] VITALS: BP 97/52
[2018-02-20 19:00] VITALS: BP 111/62
[2018-02-20] MEDS: ATORVASTATIN CALCIUM 40 MG TABLET PO SCH (21:54)
[2018-02-20] MEDS: TRAZODONE HCL 50 MG TAB PO SCH (21:54)
[2018-02-21] VITALS: BP 99/56
[2018-02-21] MEDS: IPRATROPIUM/ALBUTEROL SULFATE 3 ML SOLUTION IH SCH ×6 (01:33→22:17)
[2018-02-21 04:00] VITALS: BP 106/59
[2018-02-21] MEDS: LEVOFLOXACIN 500 MG/D5W 100 ML 100 ML IV SCH (04:13)
[2018-02-21 05:54] LABS: BASOPHILS % (AUTO) 0.1 % (0.0-5.0); HEMATOCRIT 28.3 % (42-54); LYMPHOCYTES % (AUTO) 5.9 % (21.0-51.0); MEAN CORPUSCULAR HEMOGLOBIN 31.2 pg (27.0-33.0); MEAN CORPUSCULAR VOLUME 86.7 fL (79-99); MONOCYTES % (AUTO) 2.4 % (3.0-13.0); NEUTROPHILS % (AUTO) 91.6 % (40.0-77.0); NUCLEATED RED BLOOD CELLS 0.3 % (0.0-0.19); PLATELET COUNT (AUTO) 268 K/uL (130-400); RED BLOOD CELL COUNT(AUTO) 3.26 MIL/uL (4.50-6.20); RED CELL DISTRIBUTION WIDTH 15.1 % (11.0-15.5)
[2018-02-21] MEDS: IPRATROPIUM 0.5 MG/2.5 ML INH IH SCH ×3 (06:00→18:00)
[2018-02-21 06:04] LABS: CREATININE 0.5 mg/dL (0.5-1.5); POTASSIUM 3.6 mmol/L (3.5-5.1)
[2018-02-21] MEDS: INSULIN R PO SS1 SQ SCH ×4 (06:33→21:00)
[2018-02-21 08:00] VITALS: BP 110/65
[2018-02-21] MEDS: METHYLPREDNISOLONE SOD SUCC 40MG/ML 1ML IVP SCH ×2 (09:00→21:46)
[2018-02-21] MEDS: APPL TP SCH (09:00)
[2018-02-21] MEDS: AMMONIUM LACTATE TP SCH (09:00)
[2018-02-21] MEDS: DEXAMETHASONE 4 MG TAB PO SCH ×2 (09:00→22:10)
[2018-02-21] MEDS: TAMSULOSIN HCL 0.4 MG CAP.ER.24H PO SCH (10:09)
[2018-02-21] MEDS: MEGESTROL 400 MG/10 ML UDCUP PO SCH (10:09)
[2018-02-21] MEDS: LEVETIRACETAM 500 MG TABLET PO SCH ×2 (10:09→21:27)
[2018-02-21] MEDS: FAMOTIDINE/PF 20 MG/2 ML VIAL IV SCH ×2 (10:09→21:28)
[2018-02-21] MEDS: ASCORBIC ACID 500 MG TAB PO SCH ×2 (10:10→21:28)
[2018-02-21] MEDS: ZINC SULFATE 220 CAPSULE PO SCH (10:31)
[2018-02-21 11:19] VITALS: BP 107/57
[2018-02-21 15:55] VITALS: BP 105/60
[2018-02-21] MEDS: ACETAMINOPHEN 325 MG TAB PO PRN (17:13)
[2018-02-21 19:00] VITALS: BP 113/66
[2018-02-21] MEDS: ATORVASTATIN CALCIUM 40 MG TABLET PO SCH (21:28)
[2018-02-21] MEDS: TRAZODONE HCL 50 MG TAB PO SCH (21:45)
[2018-02-22] VITALS: BP 111/63
[2018-02-22] MEDS: LEVOFLOXACIN 500 MG/D5W 100 ML 100 ML IV SCH (01:38)
[2018-02-22] MEDS: IPRATROPIUM/ALBUTEROL SULFATE 3 ML SOLUTION IH SCH ×5 (02:40→18:21)
[2018-02-22 04:00] VITALS: BP 101/56
[2018-02-22] MEDS: INSULIN R PO SS1 SQ SCH ×3 (06:25→16:30)
[2018-02-22 08:00] VITALS: BP 119/68
[2018-02-22] MEDS: METHYLPREDNISOLONE SOD SUCC 40MG/ML 1ML IVP SCH (09:00)
[2018-02-22] MEDS: AMMONIUM LACTATE TP SCH (09:00)
[2018-02-22] MEDS: APPL TP SCH (09:00)
[2018-02-22] MEDS: FAMOTIDINE/PF 20 MG/2 ML VIAL IV SCH (09:30)
[2018-02-22] MEDS: MEGESTROL 400 MG/10 ML UDCUP PO SCH (09:30)
[2018-02-22] MEDS: TAMSULOSIN HCL 0.4 MG CAP.ER.24H PO SCH (09:31)
[2018-02-22] MEDS: ZINC SULFATE 220 CAPSULE PO SCH (09:31)
[2018-02-22] MEDS: ASCORBIC ACID 500 MG TAB PO SCH (09:31)
[2018-02-22] MEDS: ACETAMINOPHEN 325 MG TAB PO PRN (09:31)
[2018-02-22] MEDS: LEVETIRACETAM 500 MG TABLET PO SCH (09:31)
[2018-02-22] MEDS: DEXAMETHASONE 4 MG TAB PO SCH (09:32)
[2018-02-22 11:00] VITALS: BP 108/62
[2018-02-22 16:00] VITALS: BP 109/57
[2018-02-22] MEDS: IPRATROPIUM 0.5 MG/2.5 ML INH IH SCH ×2 (18:00)
== END 2018-02-22 20:00 | DRG 191 ==
LOC: EDH 20:18 → OBSVTOIN 23:50 → EDHIP 23:50 → 3AH 02-19 01:54
PROVIDERS: ADMIT Family Medicine; ATTEND Family Medicine
PROC: 0DH63UZ Insertion of Feeding Device into Stomach, Percutaneous Approach (ICD-10-PCS; principal; 2018-02-19)
PROC: 0DJ08ZZ Inspection of Upper Intestinal Tract, Via Natural or Artificial Opening Endoscopic (ICD-10-PCS; 2018-02-19)
DX: J44.1 Chronic obstructive pulmonary disease with (acute) exacerbation (principal); E44.1 Mild protein-calorie malnutrition; R13.10 Dysphagia, unspecified; Z93.1 Gastrostomy status; E86.0 Dehydration; Z86.73 Personal history of transient ischemic attack (TIA), and cerebral infarction without residual deficits; Z68.20 Body mass index [BMI] 20.0-20.9, adult
CPT/HCPCS: 36415; 71045; 80048; 80053; 82550; 82553; 82948; 83874; 84484; 85025; 85610; 85730; 87040; 87804; 92610; 93005; 94640; 94664; 97039; C9113; J0690; J1815; J1956; J2175; J2704; J2920; J3480; J3490; J7040; J8540